=== PATIENT | female | born 1980 | race Caucasian/White ===

== ENCOUNTER 2017-10-21 21:02 | Inpatient (IN) | payer OTHER ==
[2017-10-21] MEDS ORDERED: Penicillin G Potassium IV* 5,000,000 UNITS in NS 0.9% 100 ML* 100 ML IVPB ONE (21:56)
--- NOTE | 2017-10-21 22:24 | HP ---
General Information - General Information Maternal Age: 37 Grav: 2 Para: 1 SAB: 0 IEA: 0 Estimated Due Date: 10/18/17 Determined By: LMP Gestational Age in Weeks and Days: 40 Weeks and 3 Days Maternal Blood Type and Rh: A Positive - Results this Serology/RPR Result: Non-Reactive Rubella Result: Immune HBsAg Result: Negative HIV Result: Negative GBS Culture Result: Positive Past Medical History Delivery History: Hx Complicated Vaginal Delivery - 3rd degree laceration, GDM Pertinent Past Medical History: Non-Contributory - thyroid nodules Pertinent Past Surgical History: None Pertinent Family History: Non-Contributory - Antepartal Records Antepartal Records: Reviewed, Uncomplicated Review of Systems Constitutional: Comfortable - between ctx CV Complaint: No Respiratory: Shortness of Breath: No Gastrointestinal: No Nausea/Vomiting Genitourinary: No Dysuria, No Bleeding, No Leaking Fluid Musculoskeletal: No Complaint, Contractions Neurological: No Headache, No Visual Changes Movement: Normal Exam Allergies/Adverse Reactions: Allergies No Known Allergies Allergy (Verified 05/17/13 02:12) T-98.3, P-80, R-16, BP-137/83, O2-98% - Measurements Height: 5 ft 5.5 in Weight: 235 g Body Mass Index (BMI): 0.1 Pre- Weight: 106.594 kg - Exam Abdomen: No Upper Quadrant Pain Breast: Breast Exam Deferred CVA: No CVA Tenderness Extremities: Edema - pedal Heart: Normal Rhythm/Heart Sounds HEENT: No Significant Findings Lungs: Clear Bilaterally Reflexes: DTR 2+ Thyroid: No Thyromegaly - Abdominal Exam Abdomen Exam: Non-Tender, Fundal Height Consistent with Dates - Ultrasound/Biophysical Profile Ultrasound Status: Not Done Targeted Exam Findings See L&D Outpatient Visit Provider Note for Findings: N/A Estimated Weight: 8# Cervical Exam: 4cm Effacement: 50% Station: -3 EFM Findings - External Monitor Findings Baseline Heart Rate: 155 External Monitor Findings: Accelerations Present, No Pattern of Variable or Late Decelerations, Variability Moderate, Baseline Stable Contractions: Regular, Moderate, 45-90 Seconds Contraction Frequency: 3-4 Assessment/Plan - Reason for Visit Reason for Visit: labor - Obstetrical Risk Factors Obstetrical Risk Factors: GBS Positive, Post-Dates, Obesity - Plan Plan: Active Labor, Antibiotic Prophylaxis - Date/Time of Admission Date of Admission: 10/21/17 Time of Admission: 22:00
[2017-10-22] MEDS ORDERED: OBEPIDURAL* 250 ML EPIDURAL ONE (00:36)
[2017-10-22 01:18] LABS: ABS Basophils 0 10^3/ul (0-0.2); ABS Eosinophils 0.2 10^3/ul (0-0.6); ABS Lymphocytes 2.1 10^3/ul (1.0-4.8); ABS Monocytes 0.8 10^3/ul (0-0.8); ABS Neutrophils 7.7 10^3/ul (1.5-7.7); ABS Nucleated RBC 0 10^3/ul; Eosinophil % 1.5 % (0-6); Hematocrit 36 % (35-47); Hemoglobin 12.4 g/dl (12.0-16.0); Lymphocyte % 19.4 % (25-47); Mean Corpuscular HGB Conc 34 g/dl (31-36); Mean Corpuscular Hemoglobin 30 pg (27-31); Mean Corpuscular Volume 88 fL (80-97); Mean Platelet Volume 9.3 um3 (7.4-10.4); Nucleated Red Blood Cells % 0; Platelet Count 235 10^3/ul (150-450); Red Blood Count 4.15 10^6/ul (4.0-5.4); Red Cell Distribution Width 15 % (10.5-15); White Blood Count 10.8 10^3/ul (3.5-10.8)
[2017-10-22] MEDS ORDERED: Phenylephrine IV* 40 MCG/ML 10 ML SYRINGE IV PUSH PRN (01:23)
[2017-10-22] MEDS ORDERED: Sodium Citrate/Citric Acid* 15 ML UDC PO PRN (01:23)
[2017-10-22] MEDS ORDERED: Famotidine TAB* 20 MG PO PRN (01:23)
[2017-10-22] MEDS ORDERED: EPHEDrine (Pressors)* 50 MG/ML VIAL IV PUSH PRN (01:23)
[2017-10-22] MEDS ORDERED: OBEPIDURAL* 250 ML EPIDURAL SCH (02:00)
[2017-10-22] MEDS: Penicillin G Potassium IV* 2,500,000 UNITS in NS 0.9% 100 ML* 100 ML IVPB SCH ×3 (03:04→11:49)
[2017-10-22] MEDS ORDERED: Oxytocin in LR* 20 UNITS/1,000 ML BAG IVPB ONE (04:53)
[2017-10-22] MEDS ORDERED: Witch Hazel PAD* JAR ONE (11:16)
[2017-10-22] MEDS ORDERED: Dibucaine 1% 28.35 GM TUBE ONE (11:16)
[2017-10-22] MEDS ORDERED: Witch Hazel PAD* JAR TOPICAL PRN (11:33)
[2017-10-22] MEDS ORDERED: Acetaminophen TAB* 325 MG PO PRN (11:33)
[2017-10-22] MEDS ORDERED: Glycerin ADULT SUPP PR PRN (11:33)
[2017-10-22] MEDS ORDERED: Dibucaine 1% 28.35 GM TUBE PR PRN (11:33)
[2017-10-22] MEDS ORDERED: Phenylephrine IV* 40 MCG/ML 10 ML SYRINGE ONE (11:34)
[2017-10-22] MEDS ORDERED: Oxytocin in LR* 20 UNITS/1,000 ML BAG IVPB SCH (12:00)
[2017-10-22] MEDS: Docusate CAP* 100 MG PO SCH ×2 (16:38→21:41)
[2017-10-22] MEDS: Ibuprofen TAB* 600 MG PO PRN ×2 (16:38→23:01)
--- NOTE | 2017-10-22 21:07 | PTEDU ---
Patient Name: FABI LOVE FABI LOVE selected video: Follow Me Mum: [facility] Successful to view on 10/22/2017 at 9:06:47 PM [id number]
[2017-10-23 06:12] LABS: Hematocrit 33 % (35-47); Hemoglobin 11.2 g/dl (12.0-16.0); Mean Corpuscular HGB Conc 34 g/dl (31-36); Mean Corpuscular Hemoglobin 30 pg (27-31); Mean Corpuscular Volume 87 fL (80-97); Platelet Count 175 10^3/ul (150-450); Red Blood Count 3.76 10^6/ul (4.0-5.4); Red Cell Distribution Width 15 % (10.5-15); White Blood Count 9.5 10^3/ul (3.5-10.8)
[2017-10-23] MEDS: Ibuprofen TAB* 600 MG PO PRN ×3 (06:13→18:43)
[2017-10-23] MEDS ORDERED: Ferrous Gluconate TAB* 324 MG TAB PO SCH (09:00)
[2017-10-23] MEDS: Docusate CAP* 100 MG PO SCH ×3 (09:16→20:53)
[2017-10-24] MEDS: Ibuprofen TAB* 600 MG PO PRN (06:07)
[2017-10-24] MEDS: Docusate CAP* 100 MG PO SCH (08:48)
[2017-10-24 08:57] VITALS: BP 108/71
[2017-10-25] MEDS ORDERED: Phenylephrine IV* 40 MCG/ML 10 ML SYRINGE IV PUSH PRN (15:26)
[2017-10-25] MEDS ORDERED: Famotidine TAB* 20 MG PO PRN (15:26)
[2017-10-25] MEDS ORDERED: Sodium Citrate/Citric Acid* 15 ML UDC PO PRN (15:26)
[2017-10-25] MEDS ORDERED: EPHEDrine (Pressors)* 50 MG/ML VIAL IV PUSH PRN (15:26)
[2017-10-25] MEDS ORDERED: OBEPIDURAL* 250 ML EPIDURAL SCH (16:00)
== END 2017-10-24 11:21 | disposition home or self-care (01) | DRG 775 ==
LOC: MCHOBOUT 21:02 → MCHOB 21:56
PROVIDERS: ADMIT Midwife; ATTEND Midwife
PROC: 10E0XZZ Delivery of Products of Conception, External Approach (ICD-10-PCS; principal; 2017-10-22)
PROC: 0KQM0ZZ Repair Perineum Muscle, Open Approach (ICD-10-PCS; 2017-10-22)
PROC: 10907ZC Drainage of Amniotic Fluid, Therapeutic from Products of Conception, Via Natural or Artificial Opening (ICD-10-PCS; 2017-10-22)
DX: O48.0 Post-term pregnancy (principal); Z3A.40 40 weeks gestation of pregnancy; O99.824 Streptococcus B carrier state complicating childbirth; O77.0 Labor and delivery complicated by meconium in amniotic fluid; O70.1 Second degree perineal laceration during delivery; O99.214 Obesity complicating childbirth; E66.9 Obesity, unspecified; Z37.0 Single live birth
CPT/HCPCS: 36415; 85025; 85027; 86850; 86900; 86901; A9270-GY; J2540